=== PATIENT | female | born 1980 | race Caucasian/White ===

== ENCOUNTER 2020-11-13 21:23 | Emergency (ER) | payer MEDICARE ==
[2020-11-13 23:48] LABS: HEMOGLOBIN 12.8 gm/dl (12.3-15.3); RED BLOOD COUNT 4.2 M/UL (4.00-5.10); WHITE BLOOD COUNT 8.3 K/UL (4.5-11.0)
[2020-11-14 00:05] LABS: BUN/CREATININE RATIO 20 (0-10)
[2020-11-14] MEDS ORDERED: CYCLOBENZAPRINE10 MG PO (01:46)
== END 2020-11-14 02:12 | disposition home or self-care (01) ==
LOC: ER1 21:23
PROVIDERS: Physician Assistant
DX: R10.9 Unspecified abdominal pain (principal); M54.5 Low back pain; R30.0 Dysuria; F17.210 Nicotine dependence, cigarettes, uncomplicated; G40.909 Epilepsy, unspecified, not intractable, without status epilepticus; Z90.49 Acquired absence of other specified parts of digestive tract; Z90.710 Acquired absence of both cervix and uterus; Z88.6 Allergy status to analgesic agent; Z88.8 Allergy status to other drugs, medicaments and biological substances
CPT/HCPCS: 80053; 81001; 83690; 85025; 87077; 87086; 87186; 99284

== ENCOUNTER → 2021-07-26 | Outpatient (CLI) | payer MEDICARE, OTHER ==
[~2021-07-26] MED LIST: CYCLOBENZAPRINE10 MG PO
== END ==
LOC: HEART CORB 07-16 13:15
DX: R07.2 Precordial pain (principal); R06.02 Shortness of breath; I11.9 Hypertensive heart disease without heart failure; I07.1 Rheumatic tricuspid insufficiency
CPT/HCPCS: 93306

== ENCOUNTER → 2021-08-10 | Outpatient (CLI) | payer MEDICARE, MEDICAID ==
[2021-08-10 13:41] LABS: HEMOGLOBIN 12.8 gm/dl (12.3-15.3); RED BLOOD COUNT 4.44 M/UL (4.00-5.10); WHITE BLOOD COUNT 8.1 K/UL (4.5-11.0)
[2021-08-10 14:02] LABS: BUN/CREATININE RATIO 20 (0-10)
== END ==
LOC: LAB 13:06
PROVIDERS: Internal Medicine Cardiovascular Disease
DX: Z45.09 Encounter for adjustment and management of other cardiac device (principal); R00.0 Tachycardia, unspecified
CPT/HCPCS: 71046; 80048; 85025

== ENCOUNTER → 2021-08-14 | Outpatient (CLI) | payer MEDICARE, OTHER ==
[~2021-08-14] MED LIST changes: +COREG6.25 MG PO; +COZAAR50 MG PO; +CRESTOR5 MG PO; +EDLUAR5 MG SL; +HYDRALAZINE HCL50 MG PO; +HYDROCODON-ACE1 EAC4 PO; +KLONOPIN TAB 00.5 MG PO; +LEVOFLOXACIN500 MG PO; +NORVASC10 MG PO
== END ==
LOC: CATH 07:56
DX: Z45.09 Encounter for adjustment and management of other cardiac device (principal); I10 Essential (primary) hypertension; I25.10 Atherosclerotic heart disease of native coronary artery without angina pectoris; E78.5 Hyperlipidemia, unspecified; K21.9 Gastro-esophageal reflux disease without esophagitis; F17.210 Nicotine dependence, cigarettes, uncomplicated
CPT/HCPCS: 99152; J2250; J3010; J3370; J7050

== ENCOUNTER 2021-09-08 13:15 | Emergency (ER) | payer MEDICARE, OTHER | END 2021-09-08 15:05 | disposition home or self-care (01) | LOC: ER1 13:15 | DX: S83.91XA Sprain of unspecified site of right knee, initial encounter (principal); S93.401A Sprain of unspecified ligament of right ankle, initial encounter; I10 Essential (primary) hypertension; E78.5 Hyperlipidemia, unspecified; F17.200 Nicotine dependence, unspecified, uncomplicated; W10.9XXA Fall (on) (from) unspecified stairs and steps, initial encounter | CPT/HCPCS: 29105; 73564; 73610; 99283 ==

== ENCOUNTER → 2021-09-24 | Outpatient (CLI) | payer MEDICARE, OTHER | LOC: KOH-I 09-18 09:00 | DX: M25.561 Pain in right knee (principal); M21.061 Valgus deformity, not elsewhere classified, right knee | CPT/HCPCS: 73721 ==

== ENCOUNTER → 2021-10-19 | Day surgery (SDC) | payer MEDICARE, OTHER ==
[~2021-10-19] VITALS: Ht 170.2 cm; Wt 78.9 kg
[~2021-10-19] MED LIST changes: +AMBIEN5 MG PO; -EDLUAR5 MG SL; +LOSARTAN-HCTZ1 EACH PO; -NORVASC10 MG PO; +NORVASC5 MG PO
== END | disposition home or self-care (01) ==
LOC: OR 05:20
PROVIDERS: Orthopaedic Surgery
PROC: 0SBC4ZZ Excision of Right Knee Joint, Percutaneous Endoscopic Approach (ICD-10-PCS; principal; 2021-10-19 07:30)
DX: S83.241A Other tear of medial meniscus, current injury, right knee, initial encounter (principal); I10 Essential (primary) hypertension; E78.5 Hyperlipidemia, unspecified; K21.9 Gastro-esophageal reflux disease without esophagitis; F17.210 Nicotine dependence, cigarettes, uncomplicated; Z20.822 Contact with and (suspected) exposure to COVID-19; Z79.899 Other long term (current) drug therapy; Z88.8 Allergy status to other drugs, medicaments and biological substances; W01.0XXA Fall on same level from slipping, tripping and stumbling without subsequent striking against object, initial encounter
CPT/HCPCS: J0690; J1100; J1170; J1885; J2001; J2250; J2704; J2765; J3010; J7120

== ENCOUNTER 2022-01-29 14:48 | Emergency (ER) | payer MEDICARE, OTHER ==
[2022-01-29] MEDS ORDERED: IBUPROFEN600 MG PO (16:13)
[2022-01-29] MEDS ORDERED: HYDROCODON-ACE1 EAC4 PO (16:44)
== END 2022-01-29 16:49 | disposition home or self-care (01) ==
LOC: ER1 14:48
DX: S82.832A Other fracture of upper and lower end of left fibula, initial encounter for closed fracture (principal); F17.210 Nicotine dependence, cigarettes, uncomplicated; W10.9XXA Fall (on) (from) unspecified stairs and steps, initial encounter; Y92.009 Unspecified place in unspecified non-institutional (private) residence as the place of occurrence of the external cause
CPT/HCPCS: 73610; 73630; 99283

== ENCOUNTER → 2022-02-01 | Outpatient (CLI) | payer MEDICARE, OTHER ==
[~2022-02-01] MED LIST changes: +IBUPROFEN600 MG PO
== END ==
LOC: KOH-I 10:00
DX: M25.572 Pain in left ankle and joints of left foot (principal); S82.832A Other fracture of upper and lower end of left fibula, initial encounter for closed fracture
CPT/HCPCS: 73700

== ENCOUNTER → 2022-02-11 | Outpatient (CLI) | payer MEDICARE, OTHER | LOC: KOH-I 15:06 | DX: S82.832A Other fracture of upper and lower end of left fibula, initial encounter for closed fracture (principal); M79.672 Pain in left foot | CPT/HCPCS: 73610; 73630 ==

== ENCOUNTER → 2022-02-19 | Outpatient (CLI) | payer MEDICARE, OTHER | LOC: KOH-I 13:47 | DX: S82.832D Other fracture of upper and lower end of left fibula, subsequent encounter for closed fracture with routine healing (principal); M79.671 Pain in right foot | CPT/HCPCS: 73610; 73630; 73650 ==

== ENCOUNTER → 2022-03-14 | Outpatient (CLI) | payer MEDICARE, OTHER | LOC: KOH-I 12:49 | DX: S86.392A Other injury of muscle(s) and tendon(s) of peroneal muscle group at lower leg level, left leg, initial encounter (principal); S82.65XA Nondisplaced fracture of lateral malleolus of left fibula, initial encounter for closed fracture; R60.0 Localized edema | CPT/HCPCS: 73721 ==